=== PATIENT | female | born 1990 | race Asian ===

== ENCOUNTER 2017-08-28 01:30 | Emergency (ER) | payer BC, OTHER ==
[2017-08-28] MEDS: HYDROCODONE/APAP (10/325) TAB PO (05:43)
[2017-08-28] MEDS: KETOROLAC 30 MG INJ IM (05:50)
== END 2017-08-28 08:06 | disposition home or self-care (01) ==
LOC: FTE 01:30
DX: M54.2 Cervicalgia (principal)
CPT/HCPCS: 81025; 96372; 99284-25